=== PATIENT | male | born 1935 | race Caucasian/White ===

== ENCOUNTER 2021-04-07 21:22 | Inpatient (IN) | payer OTHER ==
[~2021-04-07] VITALS: Ht 188 cm; Wt 95.3 kg
--- NOTE | ~2021-04-07 | EMS ---
[address] [address] EMS Patient Care Report Name: PAXTON BUTLER Room #: REG CAROL Sanford#: [id number] Admission: 04/07/21 Attend Phys: Discharge: Date of : 39 Report #: [id number] THIS REPORT FOR: //name// Report Transmitted: 04/07/2021 21:12 EMS Care Summary [facility] MED-ACT Incident [id number] @ 04/07/2021 20:42 Incident Location [address] [place] [address] Patient PAXTON BUTLER Male, 85 Years 1935 Patient Address [address] [place] [id number] Patient History Congestive Heart Failure (CHF),Hypertension (HTN),Pacemaker/AICD,Cardiac - Stent,Hypothyroidism,Myocardial Infarction (GA), Patient Allergies Iodine, Patient Medications Metoprolol, Lidocaine, ASA, Claritin, Furosemide, Sinemet, Ferrous Sulfate, Pravastatin, Levothyroxine, Tylenol, Nitroglycerin, Pantoprazole, Tramadol, Tamsulosin, Flonase, Apixaban, Cholecalciferol, Methocarbamol, Losartan, Chief Complaint pain to right arm Disposition Transported No Lights/[place] Dispatch Reason Sick Person Transported To [facility] Narrative [address] [address] EMS Patient Care Report Name: PAXTON BUTLER Room #: REG CAROL Sanford#: [id number] Admission: 04/07/21 Attend Phys: Discharge: Date of : 39 Report #: [id number] DISPATCH: [id number] was emergency dispatched to [facility] for C3 sick subject. [id number] immediately responded to the scene. CHIEF COMPLAINT: Pt presented lying supine in bed of room 209 with facility staff present, pt is Alert and oriented X 4 and appears to be in no immediate distress. Patient complained of pain to his right arm. HISTORY: Staff reports that pt fell on of last week and had x-ray (negative) that day. Pt has had increased swelling, pain and immobility of right arm since event. Second x-ray was done today. Staff reports that they do not have final report but the x-ray live truck technician advised that it looked as though pt had a spiral fracture of the upper right arm. Distal neurovasculars are intact, arm is swollen and has multiple bruises present. Pr requested that we not move or attempt to splint the arm due to pain with movement. Pt requested we leave arm as is and move him with his blanket so no splints etc applied. Pt states his pain is well controlled when no movement to arm but increases to 8/10 with bumps/movement. Pt denied other injury with event stating that he lost his balance and was able to partially turn his walker and use it to help control his fall, pt landed on right side. No loss of consciousness, no head, neck or back injury reported. ASSESSMENT: A- open/clear. B- spontaneous/adequate/non labored, pt speaks in complete sentences without distress. C- strong, regular, radial pulse, skin is warm/dry/pink without cyanosis/redness/hives/itching; LOC- GCS=15 HEAD: AMBROSIO, Clear Speech, Negative Facial Droop or Cyanosis. NECK: Negative JVD, Accessory Muscle Use. CHEST: CBBS with equal chest rise. Negative Accessory Muscle Use, or Retractions. ABDOMEN: Soft, non-tender on palpation. Negative guarding. BACK: Not assessed PELVIS: Intact, Negative Incontinence of bowel or bladder. EXTREMITIES: swelling, bruising, pain to right arm. RENDERED TREATMENT: VS as above, HPI, PMH, pt moved via blanket drag to cot and secured with seatbelts. Pt moved to ambulance where IV loc established and pt given 50 mcg Fentanyl X 2 doses for pain control. ECG showing paced rhythm, transport TRANSPORT: The patient was provided brief comfortable transport, condition unchanged and vital signs stable. No additional findings were noted with continuous ongoing assessments. DESTINATION: The patient was transported to [facility] ER and delivered to ER room 6. The destination was determined by patient preference/[facility] base [facility]. The patient was transferred to ER bed via [facility] [address] [place] [address] EMS Patient Care Report Name: PAXTON BUTLER Room #: REG M.R.#: [id number] Admission: 04/07/21 Attend Phys: Discharge: Date of : 39 Report #: [id number] sheet drag without incident, care transferred and patient report to attending nurse. Initial Vitals @21:08P: 99,R: 16,BP: 143/76,Pain: 4/10,SpO2: 94,GA Suspected: false @21:16P: 98,R: 16,BP: 150/72,Pain: 2/10,GCS: 15,SpO2: 92,Revised Trauma: 12,GA Suspected: false @20:52P: 93,R: 16,BP: 141/70,Pain: 4/10,GCS: 15,Temp: 97.4F,SpO2: 96,Revised Trauma: 12, Assessments @20:54MENTAL:Person Oriented,Time Oriented,Place Oriented,Event Oriented,SKIN:HEENT:Head/Face: No Abnormalities,LUNG SOUNDS:General: No Abnormalities,ABDOMEN:General: No Abnormalities,PELVIS//GI:EXTREMITIES:Right Arm: Edema,Right Arm: Other,Capillary Refill: Right Upper: < 2 Sec,Left Arm: No Abnormalities,Left Leg: No Abnormalities,Right Leg: No Abnormalities,PULSE:Radial: 2+ Normal,NEURO:No Abnormalities, Impression Injury of Shoulder or Upper Arm Procedures @21:02Saline Lock 10cc (20 ga) Site: Forearm-LeftResponse: UnchangedSucceeded@21:05Fentanyl - 50 Micrograms (mcg) - Intravenous (IV)Response: Unchanged@21:15Fentanyl - 50 Micrograms (mcg) - Intravenous (IV)Response: Improved Timeline 20:40,Call Received 20:40,Psap Call 20:42,Dispatched 20:43,En Route 20:47,On Scene 20:49,At Patient 20:52,BP: 141/70 M,PULSE: 93,RR: 16 R,SPO2: 96 Ox,ETCO2: ,BG: ,PAIN: 4,GCS: 15, 21:02,Saline Lock 10cc 20 ga Site: Forearm-Left,Response: UnchangedSucceeded, 21:05,Fentanyl - 50 Micrograms (mcg) - Intravenous (IV),Response: Unchanged 21:05,Depart Scene 21:08,BP: 143/76 M,PULSE: 99,RR: 16 R,SPO2: 94 Ox,ETCO2: ,BG: ,PAIN: 4,GCS: , 21:15,Fentanyl - 50 Micrograms (mcg) - Intravenous (IV),Response: Improved 21:16,BP: 150/72 M,PULSE: 98,RR: 16 R,SPO2: 92 Ox,ETCO2: ,BG: ,PAIN: 2,GCS: 15, 21:17,At Destination 21:32,Call Closed Disclaimer v1.1 Copyright 2020 [employer] [facility] [address] [place] [address] EMS Patient Care Report Name: PAXTON BUTLER Room #: REG CAROL Sanford#: [id number] Admission: 04/07/21 Attend Phys: Discharge: Date of : 39 Report #: [id number] This EMS Care Summary contains data elements from the applicable legal record (which may be displayed differently). It is designed to provide pertinent information for the following purposes: continuity of care, clinical quality, and state data reporting. The complete legal record is available to ED staff and administrators of the receiving hospital in [employer]'s Patient Tracker. All data is provided "as is."
[2021-04-07 21:27] VITALS: BP 126/66
[2021-04-07 22:42] LABS: ABSOLUTE NEUTROPHILS 7.1 thou/uL (1.4-8.2); BASOPHILS 0.2 % (0.0-2.0); EOSINOPHILS 0.4 % (0.0-3.0); HEMATOCRIT 31.5 % (42.0-52.0); HEMOGLOBIN 10.5 gm/dL (14.0-18.0); LYMPHOCYTES 10.1 % (24.0-44.0); MCH 30.5 pg (26.0-34.0); MCHC 33.4 g/dL (28.0-37.0); MCV 91.3 fL (80.0-100.0); MONOCYTES 8.7 % (1.0-8.0); PLATELET COUNT 178 thou/uL (150-400); POLYS 80.6 % (36.0-66.0); RBC 3.45 mil/uL (4.50-6.00); RDW 17.2 % (10.5-14.5); WBC 8.8 thou/uL (4.0-11.0)
[2021-04-07 22:46] LABS: CALCIUM 8.2 mg/dL (8.5-10.1); CREATININE 1.3 mg/dL (0.7-1.3); POTASSIUM 3.6 mmol/L (3.5-5.1)
[2021-04-07 22:56] LABS: ALBUMIN 3.4 g/dL (3.4-5.0); TOTAL BILIRUBIN 0.5 mg/dL (0.2-1.0)
[2021-04-08 07:39] VITALS: BP 107/43
[2021-04-08 08:10] LABS: HEMATOCRIT 26.5 % (42.0-52.0); MCH 30.9 pg (26.0-34.0); MCHC 33.9 g/dL (28.0-37.0); RBC 2.92 mil/uL (4.50-6.00); WBC 6.3 thou/uL (4.0-11.0)
[2021-04-08 08:22] LABS: CREATININE 1.1 mg/dL (0.7-1.3); POTASSIUM 3.7 mmol/L (3.5-5.1)
--- NOTE | 2021-04-08 12:46 | NUR ---
DTR REQUESTING TO BE CALLED WITH AN UPDATE ON PT. DTR- ERIC VILLAGOMEZ, CELL- [phone] NURSE NATALIE KAUR UPDATED.
[2021-04-08] MEDS ORDERED: ASA81BEC PO (20:28)
[2021-04-08] MEDS ORDERED: ELIQUIS5 MG PO (20:28)
[2021-04-08] MEDS ORDERED: DECARA1250 MCG PO (20:29)
[2021-04-08] MEDS ORDERED: CLARITIN10 M3 PO (20:29)
[2021-04-08] MEDS ORDERED: EZETIMIBE10 MG PO (20:33)
[2021-04-08] MEDS ORDERED: FEOSOL325 M1 PO (20:34)
[2021-04-08] MEDS ORDERED: FLONASE 0.05%50 MCG NASAL (20:34)
[2021-04-08] MEDS ORDERED: FUROSEMIDE 20 M20 M1 PO (20:35)
[2021-04-08] MEDS ORDERED: LATANOPROST 0.2.5 ML OPHTHALMIC (20:36)
[2021-04-08] MEDS ORDERED: LEVO-T100 MCG PO (20:45)
[2021-04-08] MEDS ORDERED: ASPERCREME1 EACH TOP (20:50)
[2021-04-08] MEDS ORDERED: LOSARTAN POTASS50 MG PO (20:50)
[2021-04-08] MEDS ORDERED: METHOCARBAMOL750 MG PO (20:50)
[2021-04-08] MEDS ORDERED: TOPROL XL25 MG PO (20:51)
[2021-04-08] MEDS ORDERED: SUPER THERAVIT1 EACH PO (20:51)
[2021-04-08] MEDS ORDERED: PROTONIX40 M2 PO (20:52)
[2021-04-08] MEDS ORDERED: PRAVASTATIN SOD10 MG PO (20:52)
[2021-04-08] MEDS ORDERED: NITROSTAT0.3 MG MUCOUS MEM (20:52)
[2021-04-08] MEDS ORDERED: SINEMET 25-1001 EAC1 PO (20:52)
[2021-04-08] MEDS ORDERED: TRAMADOL 50 MG50 MG PO (20:53)
[2021-04-08] MEDS ORDERED: FLOMAX0.4 MG PO (20:53)
[2021-04-08] MEDS ORDERED: TYLENOL 8 HOUR650 MG PO (20:53)
[2021-04-08 21:31] VITALS: BP 139/84
[2021-04-08 21:40] VITALS: BP 155/82
--- NOTE | 2021-04-09 03:32 | NUR ---
ASSUMED CARE OF PT AT SHIFT CHANGE. PT IS AOX4 AND LETS NEEDS BE KNOWN. FALL PRECAUTION IN PLACE. PT WAS ORIENTED TO THE UNIT AND ROOM. PT WAS ABLE TO ANSWER ALL ADMISSION RELATED QUESTIONS. RUE SLING IN PLACE. ASSESSMMENT CHARTED. PT REPORTED SOME RUE AND NECK PAIN; PRN PAIN MEDS PROVIDED. PRDERS RECEIVED AND STARTED. PT WAS ABLE TO GET COMFORTABLE AND SLEEP PART OF THE SHIFT. VSS AND NO S/S OF ACUTE DISTRESS. WILL CONTINUE TO MONITOR.
[2021-04-09 04:51] VITALS: BP 129/62
[2021-04-09 11:00] LABS: HEMATOCRIT 26.1 % (42.0-52.0); HEMOGLOBIN 8.6 gm/dL (14.0-18.0)
[2021-04-09] MEDS ORDERED: NYSTATIN-TRIAMC15 GM TOP (12:01)
[2021-04-09 16:51] VITALS: BP 122/59
--- NOTE | 2021-04-09 17:10 | NUR ---
PT ADMITTED RELATED TO L HUMERUS FX. CM REVIEWED CHART AND SPOKE WITH CARE TEAM. PT IS A&O X4. CM ROLE INTRODUCED. PT INDICATED HE LIVES IN [place] AT [facility]. PT INDICATED HE HAD BEEN AMBULATORY WITH A 4WW WITH A SEAT PRIOR TO FALL AND THAT HE HAD BEEN USING A
--- NOTE | 2021-04-09 17:58 | NUR ---
ASSUMED PT CARE THIS AM. PT IS ALERT & ORIENTED X4. PT HAS R HUMERUS FRACTURE AND SLING. PT IS NO CODE. PT IS UP WITH ASSIST X1 WITH GAITBELT AND WALKER. PHYSICAL THERAPY WAS WORKING WITH PT TODAY. PT IS ON 2L O2 NC. PT HAS IV SITE ON L FA SALINE LOCKED. PT USES URINAL. PT TOLERATED MEDICATION AND DIET DURING THE SHIFT. NO C/OF OF NAUSEA AND VOMITING. PT ON THE BED, BED ON THE LOWEST POSITION, SIDE RAILS UP, CALL LIGHT WITHIN REACH. WILL CONTINUE TO MONITOR PT. FOLLOW POC.
[2021-04-09 20:00] VITALS: BP 130/77
--- NOTE | 2021-04-10 03:16 | NUR ---
Pt. transfered from around 2300 last night. He is alert and oriented. He denies any pain. Pt. currently resting quietly in the bed. Bed alarm is on.
[2021-04-10 04:38] VITALS: BP 141/57
[2021-04-10 07:10] VITALS: BP 140/63
--- NOTE | 2021-04-10 11:31 | NUR ---
ON-GOING ASSESSMENT: CM REVIEWED CHART. PT TRANSFERRED FROM 4W TO 4S. CM SPOKE WITH CM FROM 4W AND REFERRAL HAD BEEN SENT TO [facility] FOR REVIEW. CM REACHED OUT TO [facility] TO CONFIRM THEY RECEIVED IT AND REPORTS THEY CAN ACCEPT PATIENT AND WILL SUBMIT FOR INSURANCE AUTH. CM REACHED OUT AND SPOKE WITH PTS DAUGHTER TO UPDATE HER AND SHE IS AGREEABLE WITH THE PLAN. CM WILL CONTINUE TO FOLLOW TO ASSIST NEEDED.
--- NOTE | 2021-04-10 11:42 | NUR ---
ASSUMED CARE OF PT AT 0700 THIS MORNING. PT IS A/OX4 WITH TREMORS FROM [facility]. PT MAY BE DICHARGED TO FACILITY LATER TODAY. ASSESSMENTS CHARTED AND OTHERWISE UNREMARKABLE. IV IN LT FA WITH SL. CALL LIGHT AND OTHER NEEDS ARE WITHIN REACH. MEDS AND TX GIVEN NEEDED AND SCHEDULED. MONITOR AND NOTING ANY CHANGES.
[2021-04-10 11:54] LABS: HEMATOCRIT 26.1 % (42.0-52.0); HEMOGLOBIN 8.6 gm/dL (14.0-18.0)
[2021-04-10 15:32] VITALS: BP 135/56
[2021-04-10 19:52] VITALS: BP 139/61
[2021-04-11 04:18] VITALS: BP 148/81
--- NOTE | 2021-04-11 04:34 | NUR ---
Pt. rested quietly during the night when checked on during frequent rounds. He did c/o some discomfort to his left shoulder. Scheduled tyleon given (see emar) with some relief noted. Bed alarm is on.
[2021-04-11 07:23] VITALS: BP 144/68
[2021-04-11 09:22] VITALS: BP 144/68
--- NOTE | 2021-04-11 13:49 | NUR ---
ON-GOING ASSESSMENT: CM REVIEWED CHART AND SPOKE WITH PATIENT WELL FACILITY. CM SPOKE WITH MARIJA AT [facility] WHO REPORTS THEY RECEIVED INSURANCE AUTH TO ACCEPT PT TO SNF TODAY. CM INFORMED PATIENT. CM ORDERED CHART COPY AND NOTIFIED REPRESENTATIVE WELL BEDSIDE RN. PT STATING HE PREFERS TO SET UP AN AMBULANCE FOR TRANSPORTATION EVEN IF HE HAS TO PRIVATELY PAY STATING HE HAS TAKEN A WHEELCHAIR VAN PREVIOUSLY AND WAS VERY UNCOMFORTABLE AND DOES NOT WANT TO DO THAT WITH HIS SHOULDER. PT STATING HE WANTS AN AMBULANCE EVEN IF HE HAS TO PRVIATELY PAY FOR IT.CM NOTIFIED PTS DAUGHTER ERIC WHO IS AGREEABLE WITH THE PLAN. CM FAXED DISCHARGE PAPERWORK TO [facility] AND CONFIRMED THEY RECEIVED IT. CM NOTIFIED BEDSIDE RN WITH THE NUMBER FOR REPORT. CM NOTIFIED MARIJA IN ADMISSIONS THAT PT PREFERS AMBULANCE TRANSPORT. CM COMPLETED [facility] FORM AND IS ON FRONT OF CHART. AWAITING TIME FOR TRANSPORTATION FROM [facility] AT THIS TIME.
--- NOTE | 2021-04-11 15:13 | NUR ---
ASSUMED CARE OF PT AGAIN THIS MORNING AT 0700. NO CHANGE FROM REPORT GIVEN LAST NIGHT. PT WAITING ON INSURANCE AUTH TO GO FOR REHAB. ASSESSMENTS CHARTED AND OTHERWISE UNREMARKABLE. IV HAS BEEN DC'D AND GETTING PT READ[facility]. TRANSPORT WILL BE ARRIVING AROUND 1530. MEDS AND TX GIVEN NEEDED AND SCHEDULED.
== END 2021-04-11 17:38 | DRG 563 ==
LOC: ER 21:22 → EROBS 22:44 → 4W 04-08 15:17 → EROBS 04-08 15:17 → 4W 04-08 19:45 → 4S 04-09 21:50
PROVIDERS: Emergency Medicine; Hospitalist; Nurse Practitioner Family; ADMIT Internal Medicine; ATTEND Internal Medicine
DX: S42.201A Unspecified fracture of upper end of right humerus, initial encounter for closed fracture (principal); D62 Acute posthemorrhagic anemia; I25.10 Atherosclerotic heart disease of native coronary artery without angina pectoris; I50.9 Heart failure, unspecified; K21.9 Gastro-esophageal reflux disease without esophagitis; I73.9 Peripheral vascular disease, unspecified; E03.9 Hypothyroidism, unspecified; E78.5 Hyperlipidemia, unspecified; N40.0 Benign prostatic hyperplasia without lower urinary tract symptoms; Z96.641 Presence of right artificial hip joint; Z66 Do not resuscitate; I11.0 Hypertensive heart disease with heart failure; W18.39XA Other fall on same level, initial encounter; R53.81 Other malaise; G20 Parkinson's disease; Z79.01 Long term (current) use of anticoagulants; Z95.810 Presence of automatic (implantable) cardiac defibrillator; I25.2 Old myocardial infarction; Z91.041 Radiographic dye allergy status; Z95.5 Presence of coronary angioplasty implant and graft; Y93.89 Activity, other specified; Y92.89 Other specified places as the place of occurrence of the external cause; Y99.8 Other external cause status; Z47.89 Encounter for other orthopedic aftercare; Z79.899 Other long term (current) drug therapy
CPT/HCPCS: 10040; 10195